=== PATIENT | female | born 1960 | race Caucasian/White ===

== ENCOUNTER → 2022-01-30 10:22 | Outpatient (CLI) | payer OTHER, SELFPAY ==
--- NOTE | ~2022-01-30 | CT_ITS ---
EXAMINATION: CT sinus wo con DATE: 01/30/2022 10:39 INDICATION: Throbbing headache. Chronic sinusitis. TECHNIQUE: Computed tomography (CT) of the paranasal sinuses was performed without contrast. Iterativ e reconstruction technique was employed. Exam dose: 296.82 mGy-cm total exam DLP. COMPARISON: None FINDINGS: There is rightward deviation of the nasal septum. There is symmetric prominent soft tissue thickening of the nasal turbinates. There is mild mucosal periosteal thickening near the maxillary ostia bilaterally but the ostiomeatal units are patent. Approximately 9 mm mucous retention cyst or polyp in the inferior aspect of the right maxillary sinus . Slight focal mucoperiosteal thickening or mucous retention cyst of the posterior lower aspect of each maxillary sinus. There is mild to moderate patchy soft tissue thickening of the ethmoid air cells . The frontal and sphenoid sinuses are normally developed and aerated. Normal development and aeration of the mastoid air cells. IMPRESSION: Rightward deviation of the nasal septum Mild mucoperiosteal thickening at the maxillary ostia Mild bilateral maxillary and ethmoid sinus disease Reviewed, dictated and finalized at [facility]. Reviewed, dictated and finalized at [facility].
== END ==
PROVIDERS: PCP Internal Medicine; Visit Provider Otolaryngology
DX: J32.9 Chronic sinusitis, unspecified (principal); J34.2 Deviated nasal septum
CPT/HCPCS: 70486